=== PATIENT | female | born 1955 | race Caucasian/White ===

== ENCOUNTER 2020-03-04 05:49 | Day surgery (SDC) | payer MEDICAID ==
[2020-03-03 14:37] LABS: COVID AG,FIA SOURCE NASOPHARYNGEAL
[~2020-03-04] VITALS: Ht 170.2 cm; Wt 60.0 kg
[~2020-03-04 05:49] MED LIST: CYCLOPENTOLATE HCL 1% 2 ML OPHTHALMIC SOLUTION ONE; MOXIFLOXACIN HCL 0.5% 3 ML OPHTHALMIC SOLUTION ONE; PHENYLEPHRINE HCL 2.5% 2 ML OPHTHALMIC SOLUTION ONE; RINGERS SOLUTION,LACTATED 500 ML IV ONE; TETRACAINE HCL/PF 0.5% 4 ML OPHTHALMIC SOLUTION ONE; TROPICAMIDE 1% 2 ML OPHTHALMIC SOLUTION ONE
[2020-03-04] MEDS ORDERED: FentaNYL CITRATE-PF 100 MCG/2 ML VIAL IVP ONE (05:50)
[2020-03-04] MEDS ORDERED: MIDAZOLAM HCL 2 MG/2 ML VIAL IVP ONE (05:50)
[2020-03-04] MEDS ORDERED: TETRACAINE HCL/PF 0.5% 4 ML OPHTHALMIC SOLUTION OD SCH (06:00)
[2020-03-04] MEDS: TROPICAMIDE 1% 2 ML OPHTHALMIC SOLUTION OD SCH ×3 (06:18→06:38)
[2020-03-04] MEDS: CYCLOPENTOLATE HCL 1% 2 ML OPHTHALMIC SOLUTION OD SCH ×3 (06:18→06:38)
[2020-03-04] MEDS: PHENYLEPHRINE HCL 2.5% 2 ML OPHTHALMIC SOLUTION OD SCH ×3 (06:19→06:38)
[2020-03-04] MEDS: KETOROLAC TROMETHAMINE 0.5% 5 ML OPHTHALMIC SOLUTION OD SCH ×3 (06:19→06:38)
[2020-03-04] MEDS: MOXIFLOXACIN HCL 0.5% 3 ML OPHTHALMIC SOLUTION OD SCH ×3 (06:19→06:38)
[2020-03-04] MEDS ORDERED: KETOROLAC TROMETHAMINE 0.5% 5 ML OPHTHALMIC SOLUTION ONE (06:31)
[2020-03-04] MEDS ORDERED: HYALURONATE SODIUM 12 MG/ML 0.8 ML SYRINGE IO ONE (17:43)
[2020-03-04] MEDS ORDERED: NEOMYCIN/POLYMYXIN B/DEXAMETH 3.5 GM OPHTHALMIC OINTMENT ONE (17:43)
[2020-03-04] MEDS ORDERED: POVIDONE-IODINE 10% 15 ML SOLUTION UD ONE (17:43)
[2020-03-04] MEDS ORDERED: EPINEPHrine 1:10,000 [1 MG/10 ML] SYRINGE ONE (17:43)
== END 2020-03-04 08:10 | disposition home or self-care (01) ==
LOC: SURGERY 05:49
PROVIDERS: ATTEND Ophthalmology
DX: H25.11 Age-related nuclear cataract, right eye (principal); Z20.828 Contact with and (suspected) exposure to other viral communicable diseases
CPT/HCPCS: 66984; 87426; C9803; J0171; J2250; J3010; J3490; J7120; V2632